=== PATIENT | female | born 1980 | race Caucasian/White ===

== ENCOUNTER 2024-12-03 06:35 | Emergency (ER) | payer MEDICAID, OTHER ==
[~2024-12-03] VITALS: Ht 134.6 cm; Wt 72.7 kg
[2024-12-03 06:48] VITALS: BP 119/69; PULSE 69; RESP 16; TEMP 98.1; O2SAT 100
[2024-12-03] MEDS: PERTUSS(ACELL),DIPH,TET/PF 0.5 ML SYRINGE [ADULT] IM. ONE (07:27)
[2024-12-03] MEDS: LIDOCAINE 1% 10 ML VIAL SQ ONE (07:27)
== END 2024-12-03 07:43 | disposition home or self-care (01) ==
LOC: EMS 06:37
DX: S01.01XA Laceration without foreign body of scalp, initial encounter (principal); W01.0XXA Fall on same level from slipping, tripping and stumbling without subsequent striking against object, initial encounter; Y93.89 Activity, other specified; Y92.89 Other specified places as the place of occurrence of the external cause; Y99.8 Other external cause status
CPT/HCPCS: 99283; 90715; 90471; 12002; J3490; 12001

== ENCOUNTER 2024-12-12 09:43 | Emergency (ER) | payer OTHER ==
[~2024-12-12] VITALS: Ht 134.6 cm; Wt 72.7 kg
[2024-12-12 09:44] VITALS: TEMP 98.8
[2024-12-12 10:32] VITALS: BP 115/65; PULSE 71; RESP 18; O2SAT 100
== END 2024-12-12 10:36 | disposition home or self-care (01) ==
LOC: EMS 09:43
DX: S01.01XD Laceration without foreign body of scalp, subsequent encounter (principal); W01.0XXD Fall on same level from slipping, tripping and stumbling without subsequent striking against object, subsequent encounter
CPT/HCPCS: 99281; Z7502